=== PATIENT | female | born 1970 | race African-American/Black ===

== ENCOUNTER → 2017-03-18 | Outpatient (CLI) | payer OTHER ==
--- NOTE | 2017-03-19 08:09 | RAD ---
DATE: 03/19/2017 EXAM: MAMMO JESSY SCREENING BILATERAL HISTORY: 46-year-old female with first time mammogram. COMPARISON: None This study was interpreted with the benefit of Computerized Aided Detection (CAD). FINDINGS: Breast Density: SCATTERED The breast parenchyma shows scattered fibroglandular densities. Breast parenchyma level B. There is a 1.6 x 1.4 cm isodense round mass in the lower central right breast approximately at 6:00 position and 3.5 cm from nipple. Another similar lesion is seen in the inferior retroareolar region measuring 1.0 x 0.9 cm. No suspicious microcalcifications, spiculated mass or architectural distortion IMPRESSION: Round masses in right breast as described above. These most likely are simple cysts. However, ultrasound confirmation is recommended. BI-RADS CATEGORY: 0 INCOMPLETE: NEED ADDITIONAL IMAGING EVAULATION AND/OR PRIOR MAMMOGRAMS FOR COMPARISON RECOMMENDED FOLLOW-UP: ADD ADDITIONAL IMAGING PQRS compliance statement: Mammography is a sensitive method for finding small breast cancers, but it does not detect them all and is not a substitute for careful clinical examination. A negative mammogram does not negate a clinically suspicious finding and should not result in delay in biopsying a clinically suspicious abnormality. "Our facility is accredited by the [employer] Mammography [employer]."
== END | disposition home or self-care (01) ==
LOC: KCIC MAMMO 09:36
PROVIDERS: ATTEND Family Medicine
DX: Z12.31 Encounter for screening mammogram for malignant neoplasm of breast (principal)
CPT/HCPCS: 77063; G0202; 77067

== ENCOUNTER → 2017-03-23 | Outpatient (CLI) | payer OTHER ==
--- NOTE | 2017-03-23 17:06 | KCIC ---
Right breast ultrasound: Reason for examination: Nodular density on screening mammogram. Comparison is made to mammographic exam dated 03/18/2017. Ultrasound examination of the right breast was performed in the area of mammographic concern and at the right axilla. In the retroareolar 6:00 position, there is a hypoechoic circumscribed lesion measuring approximately 7.9 mm in greatest dimension consistent with a small fibroadenoma. In the 7:00 position 2 cm from the nipple, there is a circumscribed 6.8 mm nodule consistent with a small fibroadenoma. In the 6:00 position 2.5 cm from the nipple and corresponding to the area of mammographic concern, there is a 1.6 cm hypoechoic circumscribed lesion in parallel orientation consistent with a small fibroadenoma. No other solid suspicious-appearing lesions are seen. No abnormal appearing lymph nodes are seen in the axilla. IMPRESSION: Benign-appearing circumscribed lesions consistent with fibroadenoma located in the 6:00 and 7:00 positions. Recommend reevaluation with ultrasound in 6 months. BI-RADS Category 3: Probably Benign. "Our facility is accredited by the [employer] Mammography [employer]." This patient's information has been entered into a reminder system for the patient to be notified with the results of her examination and a target date for the next mammogram. Electronically signed by: Mary Bazzi MD (03/23/2017 5:03 PM) [id number]
== END | disposition home or self-care (01) ==
LOC: KCIC US 12:50
PROVIDERS: ATTEND Family Medicine
DX: N63 Unspecified lump in breast (principal)
CPT/HCPCS: 76641

== ENCOUNTER → 2017-09-16 | Outpatient (CLI) | payer OTHER | END | disposition home or self-care (01) | LOC: US 12:30 | DX: N63.10 Unspecified lump in the right breast, unspecified quadrant (principal) | CPT/HCPCS: 76641 ==

== ENCOUNTER → 2019-09-21 | Outpatient (CLI) | payer OTHER ==
--- NOTE | 2019-09-21 15:12 | KCIC ---
EXAM: Bilateral screening mammogram. HISTORY: 48-year-old female presents for screening mammography. TECHNIQUE: Full-field digital craniocaudal and mediolateral oblique views of both breasts are obtained for evaluation. Computer aided detection with [employer] software version 9.3 was applied. COMPARISON: 03/20/2017 and 02/24/2017 BREAST PARENCHYMAL DENSITY: Level B - Scattered fibroglandular densities. FINDINGS: There has been slight interval increase in a circumscribed nodular density within the 5:00 subareolar aspect of the right breast. There is a stable larger circumscribed nodular density within the 6:00 position at anterior to mid depth. There is no suspicious calcification or architectural distortion within either breast. IMPRESSION: BI-RADS Category 0: Additional imaging needed. RECOMMENDATION: Slight interval increase in a circumscribed nodular density within the 5:00 subareolar aspect of the right breast and stable larger circumscribed nodular density within the 6:00 position. These likely correspond with suspected fibroadenomas on the sonogram dated 03/23/2017. Note is made that the patient did not return for recommended sonographic follow-up noted on the prior sonogram. Given a change in the smaller more anterior lesion, sonographic imaging is recommended to confirm benignity. If your mammogram demonstrates that you have dense breast tissue, which could hide abnormalities, and if you have other risk factors for breast cancer that have been identified, you might benefit from supplemental screening tests that may be suggested by your ordering physician. Dense breast tissue, in and of itself, is a relatively common condition. This information is not provided to cause undue concern, but rather to raise your awareness and to promote discussion with your physician regarding the presence of other risk factors, in addition to dense breast tissue. A report of your mammography results will be sent to you and your physician. You should contact your physician if you have any questions or concerns regarding this report. Mammography is a sensitive method for finding small breast cancers, but it does not detect them all and is not a substitute for careful clinical examination. A negative mammogram does not negate a clinically suspicious finding and should not result in delay in biopsying a clinically suspicious abnormality. PQRS compliance statement - Patient information was entered into a reminder system with a target due date for the next mammogram. "Our facility is accredited by the [employer] Mammography [employer]." Electronically signed by: Suzie Casey MD (09/21/2019 3:09 PM) [id number]
== END ==
LOC: KCIC MAMMO 11:58
PROVIDERS: ATTEND Family Medicine
DX: Z12.31 Encounter for screening mammogram for malignant neoplasm of breast (principal)
CPT/HCPCS: 77067

== ENCOUNTER → 2019-09-27 | Outpatient (CLI) | payer OTHER ==
--- NOTE | 2019-09-27 15:52 | KCIC ---
Right breast ultrasound: Reason for examination: Follow-up for nodules. Comparison is made to previous studies dated 09/16/2017 and 03/23/2017. Ultrasound examination of the right breast and axilla was performed. At the 6:00 position 2.5 cm from the nipple, there continues to be 1.4 cm hypoechoic circumscribed nodule in parallel orientation consistent with fibroadenoma which is stable. In the 7:00 position 2 cm from the nipple, there continues to be 4.7 mm hypoechoic circumscribed lesion slight decrease in overall size. In the retroareolar 6:00 position, there continues to be a 7.4 mm hypoechoic circumscribed lesion which is unchanged. No new cystic or solid nodules are seen. No abnormal appearing lymph nodes are seen in the axilla. IMPRESSION: Continued presence of circumscribed nodules probably representing fibroadenoma in the right breast which are stable. No suspicious abnormalities are seen. Recommend routine mammographic follow-up. BI-RADS Category 2: Benign. "Our facility is accredited by the [employer] Mammography [employer]." This patient's information has been entered into a reminder system for the patient to be notified with the results of her examination and a target date for the next mammogram. Electronically signed by: Mary Bazzi MD (09/27/2019 3:49 PM) [id number]
== END | disposition home or self-care (01) ==
LOC: KCIC US 12:46
PROVIDERS: ATTEND Family Medicine
DX: N63.13 Unspecified lump in the right breast, lower outer quadrant (principal); N64.89 Other specified disorders of breast
CPT/HCPCS: 76641

== ENCOUNTER → 2021-02-02 | Outpatient (CLI) | payer BC, OTHER ==
--- NOTE | 2021-02-02 08:36 | RAD ---
EXAM: Bilateral digital screening mammogram with tomosynthesis. HISTORY: 50-year-old female presents for screening mammography. TECHNIQUE: Full-field digital craniocaudal and mediolateral oblique 2D and 3D tomosynthesis images of both breasts are obtained for evaluation. Computer aided detection was applied. COMPARISON: Right breast sonogram dated 09/27/2019. Mammograms dated 09/19/2019 and 03/18/2017. BREAST PARENCHYMAL DENSITY: Level B - Scattered fibroglandular densities. FINDINGS: There is no new suspicious mass, microcalcification or region of architectural distortion. There are stable circumscribed nodules within the anterior aspect of the right breast, the sonographi c appearance of which favors fibroadenomas. The nearly 4 year course of stability favors benignity. IMPRESSION: BI-RADS Category 2: Benign finding(s). RECOMMENDATION: Annual mammography is recommended. If your mammogram demonstrates that you have dense breast tissue, which could hide abnormalities, and if you have other risk factors for breast cancer that have been identified, you might benefit from s upplemental screening tests that may be suggested by your ordering physician. Dense breast tissue, i n and of itself, is a relatively common condition. This information is not provided to cause undue c oncern, but rather to raise your awareness and to promote discussion with your physician regarding th e presence of other risk factors, in addition to dense breast tissue. A report of your mammography re sults will be sent to you and your physician. You should contact your physician if you have any ques tions or concerns regarding this report. Mammography is a sensitive method for finding small breast cancers, but it does not detect them all a nd is not a substitute for careful clinical examination. A negative mammogram does not negate a clin ically suspicious finding and should not result in delay in biopsying a clinically suspicious abnorma lity. PQRS compliance statement - Patient information was entered into a reminder system with a target due date for the next mammogram. "Our facility is accredited by the [employer] Mammography [employer]." Electronically signed by: Suzie Casey MD (02/02/2021 8:33 AM) [id number]
== END ==
LOC: MAMMO 09:55
PROVIDERS: ATTEND Family Medicine
DX: Z12.31 Encounter for screening mammogram for malignant neoplasm of breast (principal); N63.10 Unspecified lump in the right breast, unspecified quadrant
CPT/HCPCS: 77063; 77067